=== PATIENT | male | born 1980 | race Caucasian/White ===

== ENCOUNTER 2018-12-22 12:50 | Emergency (ER) | payer OTHER ==
[2018-12-22 12:58] VITALS: BP 127/83; PULSE 98; RESP 16; TEMP 98.5
--- NOTE | 2018-12-22 14:21 | ED ---
General Adult HPI - General Chief complaint: Skin/Abscess/Foreign Body Stated complaint: Lump on leg Time Seen by Provider: 12/22/18 14:02 Source: patient Mode of arrival: ambulatory Limitations: no limitations - History of Present Illness Initial comments: Patient is a 38-year-old male presenting to the ER with complaints of left groin lymph nodes 2 months. Patient states he has noticed lymph nodes a few months ago but in the last few days they have enlarged. Patient states they are not painful to the touch but sometimes are sore after he touches them. Patient denies any fever, chills, redness from the area. Patient denies any urinary complaints such as discharge or burning with urination. Patient has no concerns for STDs however states he is now from his , he denies any other partners. Patient states he has a history of cervical lymph nodes when he was younger. Patient states he has a history of asthma. No other pertinent past medical history. Patient states he has lost 30 pounds since March as he began working out. No other complaints at this time. - Related Data Allergies Allergy/AdvReac Type Severity Reaction Status Date / Time Penicillins Allergy Rash/Hives Verified 12/22/18 12:58 Review of Systems ROS Statement: Those systems with pertinent positive or pertinent negative responses have been documented in the HPI. ROS Other: All systems not noted in ROS Statement are negative. Past Medical History Past Medical History: No Reported History History of Any Multi-Drug Resistant Organisms: None Reported Past Surgical History: Orthopedic Surgery Additional Past Surgical History / Comment(s): left knee and elbow Past Psychological History: No Psychological Hx Reported Smoking Status: Current every day smoker Past Alcohol Use History: None Reported Past Drug Use History: None Reported General Exam - General Exam Comments Initial Comments: GENERAL: Well-appearing, well-nourished and in no acute distress. HEAD: Atraumatic, normocephalic. EYES: Pupils equal round and reactive to light, extraocular movements intact, sclera anicteric, conjunctiva are normal. ENT: TMs normal, nares patent, oropharynx clear without exudates. Moist mucous membranes. NECK: Normal range of motion, supple without lymphadenopathy or JVD. LUNGS: Breath sounds clear to auscultation bilaterally and equal. No wheezes rales or rhonchi. HEART: Regular rate and rhythm without murmurs, rubs or gallops. ABDOMEN: Soft, nontender, normoactive bowel sounds. No guarding, no rebound. No masses appreciated. EXTREMITIES: Normal range of motion, no pitting or edema. No clubbing or cyanosis. NEUROLOGICAL: Cranial nerves II through XII grossly intact. Normal speech, normal gait. PSYCH: Normal mood, normal affect. Limitations: no limitations exam: Present: normal inspection Expanded exam: Inguinal Lymphadenopathy: Left, Right (3-4 pea-sized lymph nodes on the left and 2 smaller lymph nodes on the right, all painless) Course Vital Signs 12/22/18 12:56 Temperature 98.5 F Pulse Rate 98 Respiratory 16 Rate Blood Pressure 127/83 O2 Sat by Pulse 97 Oximetry Medical Decision Making - Medical Decision Making Patient is a 38-year-old male complaining of left inguinal lymph nodes 2 months. Patient states they have recently increased in size. Patient denies any fever, chills, redness from the area. Patient has history of enlarged cervical lymph nodes when he was younger, during illness or asthma attacks. Patient has no complaints this time. On exam patient has through 4 painless pea-sized inguinal lymph nodes on the left and 2 smaller painless lymph nodes on the right side. UA is normal except for trace amount of ketones. Urine be sent for gonorrhea and Chlamydia testing as well. Patient will be given referral for PCP for further testing/possible biopsy. Patient is okay with this plan. Patient will be discharged. - Lab Data Lab Results 12/22/18 Range/Units 14:35 Urine Color Light Yellow Urine Appearance Clear (Clear) Urine pH 7.5 (5.0-8.0) Ur Specific [place] 1.010 (1.001-1.035) Urine Protein Negative (Negative) Urine Glucose (UA) Negative (Negative) Urine Ketones Trace H (Negative) Urine Blood Negative (Negative) Urine Nitrite Negative (Negative) Urine Bilirubin Negative (Negative) Urine Urobilinogen <2.0 (<2.0) mg/dL Ur Leukocyte Esterase Negative (Negative) Disposition Clinical Impression: Lymph nodes enlarged Disposition: HOME SELF-CARE Condition: Stable Instructions (If sedation given, give patient instructions): Lymphadenopathy (ED) Additional Instructions: Please return to the Emergency Department if symptoms worsen or any other concerns. Follow-up with PCP for further testing/management. Is patient prescribed a controlled substance at d/c from ED?: No Referrals: None,Stated [Primary Care Provider] - 1-2 days Karla Eaton MD [REFERRING] - 1-2 days
[2018-12-22 14:51] LABS: Appearance,Urine Clear (Clear); Bilirubin,Urine Negative (Negative); Blood,Urine Negative (Negative); Color,Urine Light Yellow; Glucose,Urine (UA) Negative (Negative); Ketones,Urine Trace (Negative); Leukocyte Esterase,Urine Negative (Negative); Nitrite,Urine Negative (Negative); PH, Urine 7.5 (5.0-8.0); Protein,Urine Negative (Negative); Urobilinogen,Urine <2.0 mg/dL (<2.0)
[2018-12-24 11:59] LABS: C. trachomatis,PCR Negative (Neg,Equiv); Chlamydia trachomatis Source Urine
[2018-12-24 12:06] LABS: N. gonorrhoeae,PCR Negative (Neg,Equiv); Neisseria Source Urine
== END 2018-12-22 15:05 | disposition home or self-care (01) ==
LOC: EC 12:50
DX: R59.0 Localized enlarged lymph nodes (principal); F17.200 Nicotine dependence, unspecified, uncomplicated; Z88.0 Allergy status to penicillin
CPT/HCPCS: 81003; 87491; 87591; 99283

== ENCOUNTER → 2018-12-26 | Outpatient (CLI) | payer BC, OTHER ==
--- NOTE | 2018-12-26 08:51 | US ---
EXAMINATION TYPE: US scrotum with doppler. Grayscale and color Doppler Duplex imaging performed of merritt tipton scrotum. DATE OF EXAM: 12/26/2018 COMPARISON: NONE CLINICAL HISTORY: N50. Testicular pain. Pain left testicle, lymph nodes left groin EXAM MEASUREMENTS: TESTICLES: Right Testicle: 4.1 x 1.7 x 3.7cm Left Testicle: 3.6 x 1.8 x 3.1 cm EPIDIDYMIS HEAD: Right Epididymis: 1.0 cm Left Epididymis: 1.0 cm Doppler performed to assess for testicular vascularity; good bilateral color flow and waveforms are s een. There is no evidence of testicular torsion. Scanned left groin, within patient's area of concern, multiple lymph nodes noted with largest = 1.3 cm *Prominent vessels medial to left testicle IMPRESSION: 1. Area of palpable abnormality in the left groin corresponds the multiple lymph nodes with the large st measuring a short axis of approximately 1 cm.
== END | disposition home or self-care (01) ==
LOC: RADUSWWP 07:57
PROVIDERS: ATTEND Internal Medicine
DX: R19.09 Other intra-abdominal and pelvic swelling, mass and lump (principal)
CPT/HCPCS: 76870; 93975

== ENCOUNTER 2019-01-11 12:47 | Day surgery (SDC) | payer BC, OTHER ==
[2019-01-09 10:26] VITALS: BMI 23.8
[~2019-01-11 12:47] MED LIST: DEXAMETHASONE SOD PHOSPHATE 10 MG/ML 1 ML VIAL IV ONE; HYDROmorphone 0.5 MG/0.5 ML SYRINGE IVP PRN; LACTATED RINGERS 1,000 ML IV SCH; LIDOCAINE 1% 20 ML VIAL (10MG/ML) FOR IV START INTRADERMA PRN; Pre Op ABX Message 1 EACH MISC MISCELLANE ONE
[2019-01-11 13:10] VITALS: RESP 18
[2019-01-11] MEDS ORDERED: MIDAZOLAM 2 MG/2 ML VIAL ONE (14:18)
[2019-01-11] MEDS ORDERED: LIDOCAINE 1% INJ 10MG/ML (20 ML MDV) ONE (14:18)
[2019-01-11] MEDS ORDERED: PROPOFOL 10 MG/ML 20 ML VIAL IV ONE (14:18)
[2019-01-11] MEDS ORDERED: fentaNYL (PF) 50 MCG/ML 2 ML AMP ONE (14:18)
[2019-01-11] MEDS ORDERED: BUPIVACAINE (PF) 0.25% 30 ML VIAL SQ ONE ×2 (14:37)
--- NOTE | 2019-01-11 15:02 | P.OP ---
Date of Procedure: 01/11/19 Preoperative Diagnosis: Lymphadenopathy Postoperative Diagnosis: Lymphadenopathy Procedure(s) Performed: Deep inguinal lymph node biopsy Anesthesia: MAC Surgeon: Ervin Grady Pathology: other (Lymph nodes from left inguinal region 2) Condition: stable Disposition: same day Indications for Procedure: 38-year-old male with lymphadenopathy presented to the surgical office with this as his primary complaint. He states that the lymphadenopathy has been affecting him since February or March of last year. He denies any pain at the site but does state that the lymph nodes in his bilateral groin region are enlarged along with the cervical nodes. On palpation, bilateral inguinal nodes are palpable and the left side is greater than the right side in size. Plan is for left inguinal lymph node biopsy. He was explained the risks, benefits and alternatives to the procedure did provide consent prior to attending the operating suite. Operative Findings: 2 enlarged lymph nodes in the left inguinal region Description of Procedure: The patient was brought into the operating suite and placed in supine position on the operating table. Sedation was provided by anesthesia and the patient underwent LMA placement. The patient was prepped and draped in regular sterile fashion. A left inguinal incision was made and dissection was carried towards the palpable lymphadenopathy. A lymph node was clearly visualized and dissection was made with electrocautery to free the lymph node from surrounding tissue. Hemostasis was maintained with electrocautery. The lymph node was excised and handed as specimen. An additional large palpable lymph node was noted just adjacent to this. Dissection was carried to remove and biopsy this lymph node. This lymph node was also handed as specimen. Hemostasis was maintained with electrocautery. The wound was then closed in layers with 3-0 Vicryl and then 4-0 Vicryl suture. Sterile dressing was applied. The patient was awakened in the operating suite and taken to postanesthesia care unit in stable condition.
[2019-01-11 15:06] VITALS: TEMP 97.4
[2019-01-11 15:53] VITALS: BP 100/69; PULSE 71
== END 2019-01-11 16:09 | disposition home or self-care (01) ==
LOC: OR 12:47
PROVIDERS: ATTEND Surgery
DX: R59.0 Localized enlarged lymph nodes (principal); J45.909 Unspecified asthma, uncomplicated; F10.20 Alcohol dependence, uncomplicated; D76.3 Other histiocytosis syndromes; F17.210 Nicotine dependence, cigarettes, uncomplicated; F31.9 Bipolar disorder, unspecified; Z79.899 Other long term (current) drug therapy; Z88.0 Allergy status to penicillin; Z88.5 Allergy status to narcotic agent
CPT/HCPCS: 88307; 38500; J2250; J1100; J2001; J3010; J2704

== ENCOUNTER 2021-01-05 21:26 | Emergency (ER) | payer BC, OTHER ==
[2021-01-05 21:31] VITALS: BP 160/99; PULSE 81; RESP 20; TEMP 98.6
--- NOTE | 2021-01-05 22:38 | ED ---
Fall HPI - General Chief Complaint: Fall Stated Complaint: fall, mouth inury Time Seen by Provider: 01/05/21 21:39 Source: patient Mode of arrival: ambulatory - History of Present Illness Initial Comments: Patient is a healthy 40-year-old male presenting to emergency Department with complaints of pain in his upper lip after he slipped and fall 2 days ago. Patient states he slipped on some toys that were on his deck, he fell face forward hitting at the top of his lip on the patio. He denies also consciousness. He states he came in for evaluation for the cut on his upper l ip. He states he's also been feeling fatigued, nauseous and a little bit of a headache. He denies any dizziness or lightheadedness. He denies any facial pain. He states he noticed the skin. Top of his lip changing and he is worried about a possible infection. He thinks that his top tooth did go through his lip when he fell. His teeth are not loose. He denies any neck pain, no chest pain or shortness of breath. He is not on blood thinners. He has no further complaints. - Related Data Home Medications Medication Instructions Recorded Confirmed Divalproex [Depakote] 500 mg PO BID 01/09/19 01/11/19 Previous Rx's Medication Instructions Recorded Mupirocin 2% Oint [Bactroban 2% 1 applic TOPICAL TID 5 Days #1 tube 01/05/21 Oint] Allergies Allergy/AdvReac Type Severity Reaction Status Date / Time Penicillins Allergy Rash/Hives Verified 01/05/21 21:31 meperidine [From Demerol] AdvReac Nausea & Verified 01/05/21 21:31 Vomiting Review of Systems ROS Statement: Those systems with pertinent positive or pertinent negative responses have been documented in the HPI. ROS Other: All systems not noted in ROS Statement are negative. Past Medical History Past Medical History: Asthma Additional Past Medical History / Comment(s): CHILDHOOD ASTHMA History of Any Multi-Drug Resistant Organisms: None Reported Past Surgical History: Orthopedic Surgery Additional Past Surgical History / Comment(s): left knee ARTHROSCOPIC and elbow surgery , left knee arthrotomy , wisdom teeth extractions Past Anesthesia/Blood Transfusion Reactions: Motion Sickness Past Psychological History: Bipolar Smoking Status: Current every day smoker Past Alcohol Use History: None Reported Past Drug Use History: None Reported - Past Family History Mother Family Medical History: No Reported History General Exam - General Exam Comments Initial Comments: GENERAL: Patient is well-developed and well-nourished. Patient is nontoxic and in no acute distress. HEAD: Atraumatic, normocephalic. No hematomas. No signs of basal skull fracture. EYES: Pupils equal round and reactive to light, extraocular movements intact, sclera anicteric, conjunctiva are normal. Eyelids were unremarkable. ENT: TMs normal, nares patent, oropharynx clear without exudates. Moist mucous membranes. NECK: Normal range of motion, supple without lymphadenopathy or JVD. He has no midline tenderness. LUNGS: Unlabored respirations. Breath sounds clear to auscultation bilaterally and equal. No wheezes rales or rhonchi. HEART: Regular rate and rhythm without murmurs, rubs or gallops. ABDOMEN: Soft, nontender, normoactive bowel sounds. No guarding, no rebound. No masses appreciated. : Deferred MUSCULOSKELETAL: Normal extremities with adequate strength and normal range of motion, no pitting or edema. No clubbing or cyanosis. NEUROLOGICAL: Patient is alert and oriented x 3. Motor and sensory are also intact. Cranial nerves II through XII grossly intact. Symmetrical smile. Normal speech, normal gait. PSYCH: Normal mood, normal affect. SKIN: Warm, Dry, normal turgor. Patient has a healing abrasion versus small laceration to his upper lip, there is some erythema and new tissue formation, there is some yellow discharge noted. Limitations: no limitations Course Vital Signs 01/05/21 21:27 Temperature 98.6 F Pulse Rate 81 Respiratory 20 Rate Blood Pressure 160/99 O2 Sat by Pulse 96 Oximetry Medical Decision Making - Medical Decision Making Patient is a 40-year-old male here after a slip and fall 2 days ago. He has an abrasion/laceration to his top upper lip that is now having some yellow discha rge. Patient was also having some fatigue, nausea and a little bit of a headache since this fall. He is not on blood thinners. His exam shows no acute neuro deficits. CT of the brain shows no acute process. I discussed with patient and will prescribe him antibiotic ointment to use on his lip, recommend keeping area clean and dry. He is stable for discharge and in agreement with this plan of care. Disposition Clinical Impression: Fall, Abrasion of skin of lip Disposition: HOME SELF-CARE Condition: Stable Instructions (If sedation given, give patient instructions): Abrasion (ED) Additional Instructions: Please return to the Emergency Department if symptoms worsen or any other concerns. Use topical antibiotic as prescribed. Follow-up with family doctor if symptoms persist. Prescriptions: Mupirocin 2% Oint [Bactroban 2% Oint] 1 applic TOPICAL TID 5 Days #1 tube Is patient prescribed a controlled substance at d/c from ED?: No Referrals: Karla Eaton MD [Primary Care Provider] - 1-2 days Time of Disposition: 23:15
--- NOTE | 2021-01-05 22:43 | CT ---
EXAMINATION TYPE: CT brain wo con DATE OF EXAM: 01/05/2021 COMPARISON: None HISTORY: NAUSEA AND FATIQUE SIMCE FALL X2 DAYS AGO. FACIAL INJURY CT DLP: 1143.4 mGycm Automated exposure control for dose reduction was used. Ventricles and sulci appear normal. There is no mass effect nor midline shift. There is no sign of in tracranial hemorrhage. The calvarium is intact. There is normal aeration of the mastoid sinuses. IMPRESSION: Negative unenhanced head CT scan.
== END 2021-01-05 23:20 | disposition home or self-care (01) ==
LOC: EC 21:26
DX: S00.511A Abrasion of lip, initial encounter (principal); R11.0 Nausea; J45.909 Unspecified asthma, uncomplicated; F31.9 Bipolar disorder, unspecified; F17.200 Nicotine dependence, unspecified, uncomplicated; Z88.0 Allergy status to penicillin; W01.190A Fall on same level from slipping, tripping and stumbling with subsequent striking against furniture, initial encounter
CPT/HCPCS: 70450; 99284

== ENCOUNTER 2021-04-26 15:39 | Inpatient (IN) | payer MEDICAID, OTHER ==
[2021-04-26 16:52] LABS: Basophils % (A) 0 %; Eosinophils # (A) 0.1 k/uL (0-0.7); Eosinophils % (A) 1 %; HCT 44.3 % (39.0-53.0); HGB 15.4 gm/dL (13.0-17.5); Lymphocytes # (A) 0.7 k/uL (1.0-4.8); Lymphocytes % (A) 7 %; MCH 31.4 pg (25.0-35.0); MCHC 34.8 g/dL (31.0-37.0); MCV 90.4 fL (80.0-100.0); Mean Platelet Volume 6.5; Monocytes # (A) 0.5 k/uL (0-1.0); Monocytes % (A) 5 %; Neutrophils # (A) 8.4 k/uL (1.3-7.7); Neutrophils % (A) 86 %; Platelet Count 317 k/uL (150-450); RDW 12.5 % (11.5-15.5); WBC 9.7 k/uL (3.8-10.6)
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
[2021-04-26 17:02] LABS: ALT 17 U/L (4-49); AST 23 U/L (17-59); African American GFR (CKD) >90 (>60 ml/min/1.73 sqM); Albumin 4.5 g/dL (3.5-5.0); Alkaline Phosphatase 63 U/L (38-126); Anion Gap 11 mmol/L; Blood Urea Nitrogen 7 mg/dL (9-20); Calcium 9.5 mg/dL (8.4-10.2); Carbon Dioxide 23 mmol/L (22-30); Chloride 103 mmol/L (98-107); Glucose 110 mg/dL (74-99); Non-African American GFR(CKD) >90 (>60 ml/min/1.73 sqM); Potassium 3.7 mmol/L (3.5-5.1); Sodium 137 mmol/L (137-145); Total Bilirubin 1.1 mg/dL (0.2-1.3); Total Protein 7.2 g/dL (6.3-8.2)
--- NOTE | 2021-04-26 17:16 | CT ---
EXAMINATION TYPE: CT brain wo con DATE OF EXAM: 04/26/2021 COMPARISON: 01/05/2021 HISTORY: AMS CT DLP: 1149.4 mGycm Automated exposure control for dose reduction was used. Ventricles and sulci appear normal. There is no mass effect nor midline shift. There is no sign of in tracranial hemorrhage. Calvarium is intact. There is no evidence of cerebral edema. Skull base is int act. IMPRESSION: Negative unenhanced head CT scan. No change compared to old exam.
--- NOTE | 2021-04-26 18:51 | XR ---
EXAMINATION TYPE: XR chest 2V DATE OF EXAM: 04/26/2021 COMPARISON: NONE HISTORY: Altered mental status TECHNIQUE: 2 views FINDINGS: There is no heart failure nor confluent pneumonic infiltrate. Heart and mediastinum are nor mal. Diaphragm is normal. Bony thorax is intact IMPRESSION: . Normal chest. No change
[2021-04-26] MEDS ORDERED: ONDANSETRON 4 MG ODT STARTER PACK 2 TAB BTL PO STA (20:09)
[2021-04-26] MEDS ORDERED: ZIPRASIDONE 20 MG VIAL IM ONE (20:25)
[2021-04-26] MEDS ORDERED: ZIPRASIDONE 20 MG VIAL IM STA (20:54)
[2021-04-26] MEDS ORDERED: MAG HYDROX/AL HYDROX/SIMETH 30 ML CUP PO PRN (21:54)
[2021-04-26] MEDS ORDERED: MAGNESIUM HYDROXIDE 2,400 MG/10 ML CUP PO PRN (21:54)
[2021-04-26] MEDS ORDERED: LORazepam 1 MG TAB PO PRN (21:54)
[2021-04-26] MEDS ORDERED: ACETAMINOPHEN TAB 325 MG TAB PO PRN (21:54)
[2021-04-26] MEDS ORDERED: LORazepam 2 MG/ML INJ IM PRN (22:00)
[2021-04-26] MEDS ORDERED: HALOPERIDOL LACTATE 5 MG/ML 1 ML VIAL IM PRN (22:00)
[2021-04-26] MEDS ORDERED: haloperidoL 5 MG TAB PO PRN (22:02)
[2021-04-27] MEDS ORDERED: chlorproMAZINE 25 MG/ML 2 ML AMP IM PRN (09:08)
[2021-04-27] MEDS ORDERED: LORazepam 2 MG/ML INJ IM PRN (09:09)
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
--- NOTE | 2021-04-27 12:49 | P.CONS ---
History of Present Illness - Reason for Consult Medical clearance - History of Present Illness 40-year-old male admitted for johnny patient is acutely manic patient has multiple symptoms and the patient does have pressured speech. Patient doesn't have any fever chills patient denied any chest pain although patient does have multiple orthopedic symptoms patient believes he broke his ribs broke his ankle which will need 20 more days for healing. Patient is supposed to take Depakote at home but he barely takes it. REVIEW OF SYSTEMS: Multiple complaints as described above not a reliable historian because of acute psychosis PHYSICAL EXAMINATION: GENERAL: The patient is alert and oriented x3, not in any acute distress. Well developed, well nourished. HEENT: Pupils are round and equally reacting to light. EOMI. No scleral icterus. No conjunctival pallor. Normocephalic, atraumatic. No pharyngeal erythema. No thyromegaly. CARDIOVASCULAR: S1 and S2 present. No murmurs, rubs, or gallops. PULMONARY: Chest is clear to auscultation, no wheezing or crackles. ABDOMEN: Soft, nontender, nondistended, normoactive bowel sounds. No palpable organomegaly. MUSCULOSKELETAL: No joint swelling or deformity. EXTREMITIES: No cyanosis, clubbing, or pedal edema. NEUROLOGICAL: Gross neurological examination did not reveal any focal deficits. SKIN: No rashes. Assessment and plan -Acute johnny patient does have history of bipolar disorder management as per primary service -Sinus tachycardia secondary to johnny -Nicotine abuse Past Medical History Past Medical History: Asthma Additional Past Medical History / Comment(s): CHILDHOOD ASTHMA History of Any Multi-Drug Resistant Organisms: None Reported Past Surgical History: Orthopedic Surgery Additional Past Surgical History / Comment(s): left knee ARTHROSCOPIC and elbow surgery , left knee arthrotomy , wisdom teeth extractions Past Anesthesia/Blood Transfusion Reactions: Motion Sickness Past Psychological History: Bipolar Smoking Status: Current every day smoker Past Alcohol Use History: None Reported Past Drug Use History: None Reported - Past Family History Mother Family Medical History: No Reported History Medications and Allergies Home Medications Medication Instructions Recorded Confirmed Type Divalproex [Depakote] 500 mg PO BID 01/09/19 04/26/21 History Allergies Allergy/AdvReac Type Severity Reaction Status Date / Time Penicillins Allergy Rash/Hives Verified 04/26/21 20:50 meperidine [From Demerol] AdvReac Nausea & Verified 04/26/21 20:50 Vomiting Physical Exam Vitals: Vital Signs Temp Pulse Pulse Resp BP BP Pulse Ox 04/26/21 22:30 97.1 F L 69 18 124/78 04/26/21 19:08 99.1 F 18 04/26/21 18:05 99.1 F 18 04/26/21 17:59 99.1 F 18 04/26/21 17:02 18 04/26/21 15:57 100.7 F H 104 H 20 139/92 97 Intake and Output 04/26/21 04/27/21 04/27/21 22:59 06:59 14:59 Other: Weight 83.915 kg Results CBC & Chem 7: 04/26/21 16:43 04/26/21 16:43 Labs: Abnormal Lab Results - Last 24 Hours (Table) 04/26/21 04/26/21 Range/Units 16:43 16:43 Neutrophils # 8.4 H (1.3-7.7) k/uL Lymphocytes # 0.7 L (1.0-4.8) k/uL BUN 7 L (9-20) mg/dL Glucose 110 H (74-99) mg/dL
[2021-04-27] MEDS: NICOTINE 14MG/24HR PATCH TRANSDERM SCH (16:41)
[2021-04-27] MEDS ORDERED: DIVALPROEX ER 500 MG TAB.ER.24H PO SCH (21:00)
[2021-04-28] MEDS: NICOTINE 14MG/24HR PATCH TRANSDERM SCH (07:51)
[2021-04-28] MEDS: chlorproMAZINE 25 MG TAB PO PRN (08:40)
[2021-04-28] MEDS: LORazepam 1 MG TAB PO PRN (08:40)
[2021-04-28] MEDS ORDERED: DIVALPROEX 500 MG TABLET.DR PO STA (09:29)
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
[2021-04-28] MEDS: DIVALPROEX 500 MG TABLET.DR PO SCH (20:30)
[2021-04-29] MEDS: LORazepam 1 MG TAB PO PRN (01:25)
[2021-04-29] MEDS: chlorproMAZINE 25 MG TAB PO PRN (01:25)
[2021-04-29 07:22] VITALS: RESP 16
[2021-04-29] MEDS: DIVALPROEX 500 MG TABLET.DR PO SCH ×2 (07:40→20:42)
[2021-04-29] MEDS: NICOTINE 14MG/24HR PATCH TRANSDERM SCH (07:41)
--- NOTE | 2021-04-29 11:13 | P.PN ---
Progress Note - Text Progress Note Date: 04/29/21 Interval History: Patient was seen wandering the hallways and was directable and agreeable to s peak with engineering writer in the office. The patient continues to display a significant improvement in mood. He reports he took thorazine last night to decrease his racing thoughts and delusional thinking and it helped significantly. He is agreeable to having thorazine scheduled. He is currently not reporting any suicidal or homicidal ideation, intention, and/or plan. He is not reporting any auditory or visual hallucinations. He denies any paranoia or other delusions today. He is much more linear in conversation. He has been adherent with his medication and is not reporting any significant side effect at this time. He understands he will have to meet with the attorney general tomorrow and plans to defer mental health court. Mental Status Exam: General Appearance: Patient appears to be stated age is alert and cooperative. At times difficult to direct. Behavior: Psychomotor activity appears normal today. Eye contact is fair. Speech: Patient's speech is less pressured. More interruptible, less rapid, and with normal volume. Spontaneous. Mood/Affect: Mood is feeling better, affect is slightly expansive but otherwise euthymic to bright. Suicidality/Homicidality: Patient denies having any suicidal or homicidal ideation intent or plan. Perceptions: Patient denies any visual hallucinations and denies any auditory hallucinations Though content/process: Much more linear and logical today. Memory and concentration: AOX3, grossly intact for the purposes of this session Judgment and insight: Improving mildly Vital Signs Temp 97.4 F L 04/29/21 01:00 Pulse 89 04/29/21 01:00 Resp 16 04/29/21 01:00 BP 144/85 04/29/21 01:00 Pulse Ox 97 04/26/21 15:57 Assessment Bipolar disorder, type I, manic episode Cannabis use disorder Plan: -Patient continues to meet criteria for inpatient psychiatric admission for symptom stabilization and safety. Patient was admitted under involuntary status and a second certification was completed and along with his petition was filed f or court. Patient is scheduled to see the attorney general tomorrow and reports he plans to defer. -Medications: Continue Depakote 500 mg twice daily for Bipolar disorder Start thorazine 50 mg at bedtime for psychosis/mood stabilization. -Ativan and Thorazine PRN for agitation/aggression -Discontinue 1:1 security. -NRT - nicotine patch; Nicorette gum. -SW on board for discharge planning. Encouraged the patient to participate in milieu.
[2021-04-29] MEDS: NICOTINE GUM (POLACRILEX) 2 MG GUM BUCCAL PRN ×2 (11:58→16:28)
[2021-04-29 13:20] VITALS: BMI 25.7
[2021-04-29] MEDS ORDERED: chlorproMAZINE 25 MG TAB PO SCH (21:00)
[2021-04-30 07:15] VITALS: BP 126/71; PULSE 86; TEMP 97.3
[2021-04-30] MEDS: DIVALPROEX 500 MG TABLET.DR PO SCH (07:51)
[2021-04-30] MEDS: NICOTINE GUM (POLACRILEX) 2 MG GUM BUCCAL PRN ×2 (07:51→12:30)
[2021-04-30] MEDS: NICOTINE 14MG/24HR PATCH TRANSDERM SCH (07:51)
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
== END 2021-04-30 14:20 | disposition home or self-care (01) | DRG 885 ==
LOC: EC 15:39 → 3MHU 21:48
PROVIDERS: ADMIT Psychiatry & Neurology Psychiatry; ATTEND Psychiatry & Neurology Psychiatry
DX: F31.2 Bipolar disorder, current episode manic severe with psychotic features (principal); F12.10 Cannabis abuse, uncomplicated; Z20.822 Contact with and (suspected) exposure to COVID-19; J45.909 Unspecified asthma, uncomplicated; F17.200 Nicotine dependence, unspecified, uncomplicated; Z71.6 Tobacco abuse counseling; Z71.51 Drug abuse counseling and surveillance of drug abuser; Z79.899 Other long term (current) drug therapy; Z88.5 Allergy status to narcotic agent; Z88.0 Allergy status to penicillin; Z87.39 Personal history of other diseases of the musculoskeletal system and connective tissue; Z98.810 Dental sealant status; Z98.890 Other specified postprocedural states
CPT/HCPCS: 36415; 70450; 71046; 80053; 80164; 82075; 85025; 87635; 93005; 99285

== ENCOUNTER 2024-01-02 16:00 | Emergency (ER) | payer MEDICARE, OTHER ==
--- NOTE | 2024-01-02 17:08 | ED ---
Lower Extremity Injury HPI - General Chief Complaint: Extremity Injury, Lower Stated Complaint: knee injury Time Seen by Provider: 01/02/24 16:40 Source: patient, RN notes reviewed Mode of arrival: ambulatory Limitations: no limitations - History of Present Illness Initial Comments: 43-year-old male presenting with left knee injury 4 days ago. States he was walking when he felt a "slipping" sensation in his left medial knee. He is able to ambulate but admits intermittent pain both while weightbearing and nonweightbearing. He states the medial aspect of the knee was tender to palpation a couple days ago but has not resolved. Denies numbness or tingling. No calf tenderness or other injuries. - Related Data Previous Rx's Medication Instructions Recorded Divalproex [Depakote] 500 mg PO BID 30 Days tablet 04/30/21 Nicotine Gum (Polacrilex) 2 mg BUCCAL Q4HR PRN 30 Days 04/30/21 [Nicorette] chlorproMAZINE [Thorazine] 50 mg PO HS 30 Days tab 04/30/21 Allergies Allergy/AdvReac Type Severity Reaction Status Date / Time Penicillins Allergy Rash/Hives Verified 04/26/21 20:50 meperidine [From Demerol] AdvReac Nausea & Verified 04/26/21 20:50 Vomiting Review of Systems ROS Statement: Those systems with pertinent positive or pertinent negative responses have been documented in the HPI. ROS Other: All systems not noted in ROS Statement are negative. Past Medical History Past Medical History: Asthma Additional Past Medical History / Comment(s): CHILDHOOD ASTHMA History of Any Multi-Drug Resistant Organisms: None Reported Past Surgical History: Orthopedic Surgery Additional Past Surgical History / Comment(s): left knee ARTHROSCOPIC and elbow surgery , left knee arthrotomy , wisdom teeth extractions Past Anesthesia/Blood Transfusion Reactions: Motion Sickness Past Psychological History: Bipolar Smoking Status: Current every day smoker Past Alcohol Use History: None Reported Past Drug Use History: None Reported - Past Family History Mother Family Medical History: No Reported History General Exam Limitations: no limitations General appearance: alert, in no apparent distress Head exam: Present: atraumatic, normocephalic, normal inspection Left Upper Leg exam: Present: normal inspection, full ROM. Absent: tenderness, swelling Knee exam: Present: normal inspection, full ROM, swelling (Mild edema in the medial aspect of the left knee. No erythema or warmth), pain/laxity with valgus. Absent: tenderness, abrasion, laceration, deformity, pain/laxity with varus Lower Leg exam: Present: normal inspection, full ROM. Absent: tenderness, swelling Ankle exam: Present: normal inspection, full ROM. Absent: tenderness, swelling Foot/Toe exam: Present: normal inspection, full ROM. Absent: tenderness, swelling Course Vital Signs 01/02/24 01/02/24 16:10 18:30 Temperature 98 F 98.1 F Pulse Rate 97 86 Respiratory 16 18 Rate Blood Pressure 127/84 122/76 O2 Sat by Pulse 98 99 Oximetry Medical Decision Making - Medical Decision Making Was pt. sent in by a medical professional or institution (, PA, STREET CLEANING EQUIPMENT OPERATOR, urgent care, hospital, or intermediate...) When possible be specific @ -No Did you speak to anyone other than the patient for history (EMS, parent, family, police, friend...)? What history was obtained from this source @ -No Did you review nursing and triage notes (agree or disagree)? Why? @ -I reviewed and agree with nursing and triage notes Were old charts reviewed (outside hosp., previous admission, EMS record, old EKG, old radiological studies, urgent care reports/EKG's, intermediate records)? Report findings @ -No old charts were reviewed Differential Diagnosis (chest pain, altered mental status, abdominal pain women, abdominal pain men, vaginal bleeding, weakness, fever, dyspnea, syncope, headache, dizziness, GI bleed, back pain, seizure, CVA, palpatations, mental health, musculoskeletal)? @ -Differential Musculoskeletal Muscular strain, contusion, ligament sprain, fracture, arthritis, septic arthritis, bursitis, cellulitis, muscle spasm, nerve compression, DVT, arterial occlusion, herpes zoster, electrolyte abnormality, tumor.... This is not meant to be in all inclusive list EKG interpreted by me (3pts min.). @ -None X-rays interpreted by me (1pt min.). @ -X-ray reveals no acute osseous abnormality of left knee CT interpreted by me (1pt min.). @ -None done U/S interpreted by me (1pt. min.). @ -None done What testing was considered but not performed or refused? (CT, X-rays, U/S, labs)? Why? @ -None What meds were considered but not given or refused? Why? @ -None Did you discuss the management of the patient with other professionals (professionals i.e. , PA, STREET CLEANING EQUIPMENT OPERATOR, lab, RT, psych nurse, pediatric social worker, banquet cook, teacher, air defense artillery officer, case mgr)? Give summary @ -No Was smoking cessation discussed for >3mins.? @ -No Was critical care preformed (if so, how long)? @ -No Were there social determinants of health that impacted care today? How? (Homelessness, low income, unemployed, alcoholism, drug addiction, transportation, low edu. Level, literacy, decrease access to med. care, penitentiary, rehab)? @ -No Was there de-escalation of care discussed even if they declined (Discuss DNR or withdrawal of care, Hospice)? DNR status @ -No What co-morbidities impacted this encounter? (DM, HTN, Smoking, COPD, CAD, Cancer, CVA, ARF, Chemo, Hep., AIDS, mental health diagnosis, sleep apnea, morbid obesity)? @ -None Was patient admitted / discharged? Hospital course, mention meds given and route, prescriptions, significant lab abnormalities, going to OR and other per tinent info. @ -Patient was discharged. Patient was seen and evaluated for left knee injury 4 days ago. Patient is able to bear weight. He is neurovascularly intact. No sign of bacterial infection. X-ray reveals no acute osseous abnormality of left knee. Discussed with patient diagnosis of left knee sprain. [place] wrap applied. Supportive care discussed. Strict return parameters discussed and patient is agreeable to plan. Discussed can follow-up with orthopedics if symptoms persist. Case discussed with my attending Dr. Rojo. Patient discharged in stable condition. Undiagnosed new problem with uncertain prognosis? @ -No Drug Therapy requiring intensive monitoring for toxicity (Heparin, Nitro, Insulin, Cardizem)? @ -No Were any procedures done? @ -No Diagnosis/symptom? @ -Left knee sprain Acute, or Chronic, or Acute on Chronic? @ -Acute Uncomplicated (without systemic symptoms) or Complicated (systemic symptoms)? @ -Uncomplicated Side effects of treatment? @ -No Exacerbation, Progression, or Severe Exacerbation? @ -No Poses a threat to life or bodily function? How? (Chest pain, [place], [place], pneumonia, PE, COPD, DKA, ARF, appy, cholecystitis, CVA, Diverticulitis, Homicidal, [place] icidal, threat to staff... and all critical care pts) @ -No Disposition Clinical Impression: Left knee sprain Disposition: HOME SELF-CARE Condition: Stable Instructions (If sedation given, give patient instructions): Knee Sprain (ED) Additional Instructions: Follow-up with orthopedics if symptoms persist. Keep knee elevated and apply ice. Please return to the Emergency Department if symptoms worsen or any other concerns. Is patient prescribed a controlled substance at d/c from ED?: No Referrals: Gil Campbell MD [Primary Care Provider] - 1-2 days Eric Mcleod DO [Doctor of Osteopathic Medicine] - 1-2 days Time of Disposition: 18:24
--- NOTE | 2024-01-02 17:27 | XR ---
EXAMINATION TYPE: XR knee complete LT DATE OF EXAM: 01/02/2024 COMPARISON: None HISTORY: Pain from injury TECHNIQUE: 3 view left knee FINDINGS: No joint effusion is evident. Joint spaces are preserved. No acute fracture or dislocation evident. The graft follow up exams can be performed 7-10 days from acute trauma for continued pain. IMPRESSION: 1. No acute osseous abnormality left knee
[2024-01-02 18:32] VITALS: BP 122/76; PULSE 86; RESP 18; TEMP 98.1
== END 2024-01-02 19:38 | disposition home or self-care (01) ==
LOC: EC 16:00
DX: S83.92XA Sprain of unspecified site of left knee, initial encounter (principal); F17.200 Nicotine dependence, unspecified, uncomplicated; Z88.0 Allergy status to penicillin; Z88.5 Allergy status to narcotic agent; W01.0XXA Fall on same level from slipping, tripping and stumbling without subsequent striking against object, initial encounter; Y93.01 Activity, walking, marching and hiking
CPT/HCPCS: 99283